=== PATIENT | female | born 1930 ===

== ENCOUNTER 2019-05-23 20:52 | Inpatient (IN) | payer MEDICARE, OTHER ==
[~2019-05-23] VITALS: Ht 167.6 cm; Wt 63.2 kg
[2019-05-23 23:18] VITALS: BP 127/67; PULSE 62; TEMP 97.6
[2019-05-23 23:20] VITALS: BP 127/67; PULSE 62; TEMP 97.6
[2019-05-23] MEDS ORDERED: NORVASC 5MG5 MG/TAB PO (23:20)
[2019-05-23] MEDS ORDERED: SYNTHROID0.05 MG/TA PO (23:21)
[2019-05-23] MEDS ORDERED: BETAPACE 80MG80 MG PO (23:22)
[2019-05-23] MEDS ORDERED: MULTI VITAMINS1 TAB PO (23:38)
[2019-05-24] VITALS (11 sets, daily range): BP systolic 102–144; BP diastolic 50–63; PULSE 54–70; TEMP 97.4–98.2
--- NOTE | 2019-05-24 01:39 | NUR ---
Patient arrived to unit from EMS at [facility]. Patient had fall over cement parking block with result of left hip fx. Patient alert and oriented with VSS. Mares placed. D5NS running at 75 with IV in left hand. PRN morphine given, patient states she has a lot of relief from this rather than the fentanyl she was getting. Call light within reach, will continue to monitor
[2019-05-24 02:49] LABS: MUCOUS Present /lpf; PH 7 (5-8); SQUAMOUS EPITHELIAL None Seen /hpf; URINE APPEARANCE Clear; URINE BACTERIA None Seen /hpf; URINE BILIRUBIN Negative (NEGATIVE); URINE BLOOD 1+ (NEGATIVE); URINE COLOR Yellow; URINE GLUCOSE 1+ (NEGATIVE); URINE KETONE 1+ (NEGATIVE); URINE LEUKOCYTE ESTERASE Negative (NEGATIVE); URINE NITRATE Negative (NEGATIVE); URINE PROTEIN(semi-quant) Negative (NEGATIVE); URINE RBC 0-2 /hpf; URINE UROBILINOGEN Negative (NEGATIVE)
[2019-05-24 02:50] LABS: COLLECTION METHOD CLEAN CATCH
[2019-05-24 04:12] LABS: BASO % 0.2 % (0.0-2.0); EOS % 0.2 % (0-4.0); GRAN # 18.2 (1.4-6.5); GRAN % 87.6 % (42.2-75.2); HEMATOCRIT 41.9 % (37.0-47.0); HEMOGLOBIN 13.5 g/dl (12.5-16.0); LYMPH # 1.2 (1.2-3.4); MEAN CELL VOLUME 90 fl (80.0-100.0); MEAN CORPUSCULAR HEMOGLOBIN 29 pg (27.0-31.0); MEAN CORPUSCULAR HGB CONC 32 g/dl (33.0-37.0); MEAN PLATELET VOLUME 9.6 fl (7.4-10.4); MONO # 1.1 (0.1-0.6); MONO % 5.5 % (1.7-9.3); PLATELET COUNT 229 K/mm3 (130-400); RED BLOOD COUNT 4.66 M/mm3 (4.10-5.30); REDCELL DISTRIBUTION WIDTH-CV 13.8 % (11.5-14.5)
--- NOTE | 2019-05-24 04:17 | NUR ---
kaitlin notified of WBC count
[2019-05-24 04:20] LABS: INR 1.1 (0.8-3.0); PROTHROMBIN TIME 13.1 SECONDS (9.7-12.8)
[2019-05-24 04:23] LABS: ALBUMIN 4.1 gm/dL (3.5-5.0); CALCIUM 8.8 mg/dL (8.4-10.2); CREATININE, serum 0.66 (0.52-1.25); MAGNESIUM 1.8 mg/dL (1.6-2.3); POTASSIUM 4.2 mmol/L (3.4-5.0)
[2019-05-24 04:30] LABS: PRE ALBUMIN 19.4 mg/dL (17.6-36.0)
--- NOTE | 2019-05-24 09:15 | NUR ---
Left hip pain improved with prn Morphine. Hospitalist saw patient. Orthopedics notified. Daughters here. To surgery per bed with OR staff.
--- NOTE | 2019-05-24 12:05 | NUR ---
Returned to room from PACU. Alert. Denied pain or nausea. Left hip dressing CDI. VSS. Family at bedside.
--- NOTE | 2019-05-24 18:30 | NUR ---
VSS. Denied pain. Moving legs well. Repositioned in bed. Took diet without nausea. Hospitalist notified of low urine output. IV fluids infusing. Patient encouraged to drink more fluids as tolerated.
--- NOTE | 2019-05-24 21:44 | NUR ---
Patient doing well. Had left hip fx repair. Bulky dressing to hip, CD&I. Pain is controlled. Has NS running. Evening meds given. No other complaints at this time. Call light within reach, will continue to monitor
--- NOTE | 2019-05-24 23:09 | NUR ---
asked patient if she wanted to get up and out of bed, refused. stated she was too tired
[2019-05-25 01:33] VITALS: BP 107/56; PULSE 68; TEMP 99.1
--- NOTE | 2019-05-25 03:21 | NUR ---
Patient sleeping in bed. VSS. No concerns at this time. Will continue to monitor
[2019-05-25 04:00] VITALS: BP 112/52; PULSE 67; TEMP 97.5
[2019-05-25 06:31] LABS: BASO % 0.3 % (0.0-2.0); EOS # 0.3 (0.0-0.7); EOS % 2.6 % (0-4.0); GRAN # 9.4 (1.4-6.5); GRAN % 75.4 % (42.2-75.2); HEMOGLOBIN 11.8 g/dl (12.5-16.0); LYMPH # 1.7 (1.2-3.4); LYMPH % 13.2 % (20.0-51.0); MEAN CELL VOLUME 91 fl (80.0-100.0); MEAN CORPUSCULAR HEMOGLOBIN 29 pg (27.0-31.0); MEAN CORPUSCULAR HGB CONC 32 g/dl (33.0-37.0); MEAN PLATELET VOLUME 10.1 fl (7.4-10.4); MONO % 8.1 % (1.7-9.3); PLATELET COUNT 212 K/mm3 (130-400); RED BLOOD COUNT 4.03 M/mm3 (4.10-5.30); REDCELL DISTRIBUTION WIDTH-CV 13.9 % (11.5-14.5)
[2019-05-25 06:49] LABS: HEMATOCRIT 36.6 % (37.0-47.0)
[2019-05-25 06:53] LABS: CALCIUM 8.3 mg/dL (8.4-10.2); CREATININE, serum 0.9 (0.52-1.25); POTASSIUM 4.4 mmol/L (3.4-5.0)
[2019-05-25 07:41] VITALS: BP 124/65; PULSE 78; TEMP 98.7
[2019-05-25 11:29] VITALS: BP 94/72; PULSE 70; TEMP 98.2
[2019-05-25 15:31] VITALS: BP 122/59; PULSE 66; TEMP 98.2
--- NOTE | 2019-05-25 16:16 | NUR ---
Plan is to go to a SNF at 1. [facility], or 2. [facility]. SW met with patient and her two DTRs also Dtr Denisha DARLING and Urmila Torres . Patient gave verbal auth to talk in front of DTRs. Patient choice for [facility] because her is currently there for SNF. Patient woould like to be with her . Patient reports that her second options would be [facility]. Patient denies having any DME us prior to this stay. Dr. Butler in [place] is PCP and [facility] is pref-RX. Patient is not currently using any Home health services. Patient does use hearing devices. They are currenlty not working well. Waiting on screen to be returned for either placment. VV [phone], [phone].
--- NOTE | 2019-05-25 18:00 | NUR ---
Denied need for pain med this shift. O2 on per nasal cannula. Transfers well with walker and one staff assist. Complained of nausea and epigastric discomfort improved after prn meds. Urine output improved today.
[2019-05-25 19:29] VITALS: BP 103/53; PULSE 72; TEMP 97.5
--- NOTE | 2019-05-25 20:10 | NUR ---
Pt doing well. Resting in bed. Did get up and ambulate [address] C/o nausea afterwards, most likely due to being off oxygen for walk. Put back on oxygen and patient resting in bed. Stated she felt better after. No other concerns. Call light within reach, will continue to monitor
[2019-05-26] VITALS (7 sets, daily range): BP systolic 118–138; BP diastolic 47–76; PULSE 64–71; TEMP 97.4–98
--- NOTE | 2019-05-26 00:15 | NUR ---
Iv found to be leaking. Taken out and restarted 22g in left forearm with no issues. CD&I
[2019-05-26 07:12] LABS: BASO % 0.3 % (0.0-2.0); EOS # 0.4 (0.0-0.7); EOS % 2.4 % (0-4.0); GRAN # 11.3 (1.4-6.5); GRAN % 76.3 % (42.2-75.2); HEMOGLOBIN 10.9 g/dl (12.5-16.0); LYMPH # 2.2 (1.2-3.4); LYMPH % 14.6 % (20.0-51.0); MEAN CELL VOLUME 92 fl (80.0-100.0); MEAN CORPUSCULAR HEMOGLOBIN 29 pg (27.0-31.0); MEAN CORPUSCULAR HGB CONC 32 g/dl (33.0-37.0); MEAN PLATELET VOLUME 10.4 fl (7.4-10.4); MONO # 0.9 (0.1-0.6); MONO % 5.9 % (1.7-9.3); PLATELET COUNT 219 K/mm3 (130-400); RED BLOOD COUNT 3.78 M/mm3 (4.10-5.30); REDCELL DISTRIBUTION WIDTH-CV 13.9 % (11.5-14.5)
[2019-05-26 07:13] LABS: HEMATOCRIT 34.6 % (37.0-47.0)
--- NOTE | 2019-05-26 07:16 | NUR ---
Report from Syeda GROSS. pt returned to bed after voiding with assist.
[2019-05-26 07:19] LABS: CALCIUM 8.2 mg/dL (8.4-10.2); CREATININE, serum 0.82 (0.52-1.25); POTASSIUM 4.6 mmol/L (3.4-5.0)
--- NOTE | 2019-05-26 08:34 | NUR ---
PT RESTING IN BED. PO PAIN MEDS GIVEN FOR PAIN. PT IS A/O X3, DRESSING TO LEFT HIP CDI WITH NO DRAINAGE NOTED.
[2019-05-26] MEDS ORDERED: PROTONIX 40MG T40 MG PO (09:47)
[2019-05-26] MEDS ORDERED: ASPIRIN 32325 MG/TA1 PO (09:47)
[2019-05-26] MEDS ORDERED: ULTRAM 50MG TAB50 MG PO (09:51)
--- NOTE | 2019-05-26 11:32 | NUR ---
The patient's daughters' approached [facility], inquiring about rehab in [address]. SW informed them of inpatient rehab. The patient's daughters report that they would be interested in IPR. Urmila reports that the patient would have to share a room at [facility] and they would not prefer that. [facility] consulted IPR Director, Estefania. SW awaiting their screen.
--- NOTE | 2019-05-26 11:46 | NUR ---
Follow-up visit; Patient thanked Cylinder Inspector for looking in on her and offering prayer and encouragement. Cylinder Inspector met Melissa's daughters as they left and let them know Cylinder Inspector is available to offer Spiritual Care to follow up for Melissa's Copy Manager.
--- NOTE | 2019-05-26 13:43 | NUR ---
Estefania, IPR Director, reports that they are able to accept the patient. Ivette, at [facility], then contacted [facility] to inform that one of their residents is moving to a different room and it would leave a private room available for the patient. Ivette reports that they would then be able to accept the patient tomorrow, 05/27. [facility] and IPR Director, Estefania, then met with the patient to inform. The patient plans to contact her daughters before making a decision on which to pursue. [facility] had also presented and explained the IM form to the patient. The patient verbalized understanding, signed, and she was provided a copy. [facility] to continue to follow.
--- NOTE | 2019-05-26 15:36 | NUR ---
[facility] followed up with the patient. The patient reports that she has spoke to her daughters and that they have decided to pursue [facility]. [facility]I updated IPR Director, Estefania. [facility]I attempted to contact Ivette at [facility]. [facility] left a her a voicemail.
--- NOTE | 2019-05-26 15:42 | NUR ---
Ivette, at [facility], reports that they are able to accept the patient.
--- NOTE | 2019-05-26 20:40 | NUR ---
Lying in bed with eyes open. Denies pain or nausea at this time. Explains that she has had a rough day with nausea and reflux but at this time she feels good. Left hip with dressing CDI. Patient ambulates to bathroom. Voids without difficulty. Returns to bed. Syd hose on and SCDs in place. Patient denies further needs at this time.
--- NOTE | 2019-05-26 23:45 | NUR ---
Lying in bed with eyes closed. Opens eyes when name called out. Denies pain or nausea. Up to bathroom, gait steady with use of walker. Voids without difficulty. Returns to bed. Denies further needs at this time.
[2019-05-27 03:51] VITALS: BP 121/57; PULSE 68; TEMP 97.8
--- NOTE | 2019-05-27 04:03 | NUR ---
Lying in bed with eyes closed. Opens eyes when name called out. Denies pain. Dressing to left hip CDI. Ambulates to bathroom with use of walker. Gait steady. Urinates without difficulty, missed measuring hat. Returns to bed. Denies further needs at this time.
--- NOTE | 2019-05-27 06:00 | NUR ---
Lying in bed with eyes closed. Eyes open when name called out. Denies pain. Denies further needs at this time.
--- NOTE | 2019-05-27 06:35 | NUR ---
awake and resting in bed, bedside shift report received from GINNY Dos Santos
[2019-05-27 08:15] VITALS: BP 138/45; PULSE 71; TEMP 98.3
--- NOTE | 2019-05-27 08:30 | NUR ---
resting up in chair, has had breakfast and tolerated well, was up to bathroom and has had 3 small bowel movements, still c/o minimal nausea but it is getting better, full assessment completed, see interventions for further info, denies need for pain pills
[2019-05-27] MEDS ORDERED: ANTACID 225 MG360 M1 PO (08:50)
--- NOTE | 2019-05-27 08:50 | NUR ---
Dr Lopez and care team in to see patient
--- NOTE | 2019-05-27 09:50 | NUR ---
has had another loose stool and given immodium 2mg
--- NOTE | 2019-05-27 10:28 | NUR ---
The patient is to discharge today, 05/27, to [facility] for a skilled stay. Transportation was scheduled for 1300, via [facility]. SW informed the patient, patient's daughters, and the RN. They were all in agreeance to the time. No additional needs.
--- NOTE | 2019-05-27 11:44 | NUR ---
Follow up visit from the wind plant manager. No needs right now.
--- NOTE | 2019-05-27 12:00 | NUR ---
sitting up in chair eating lunch, CONCRETE PIPE MACHINE OPERATOR assisted her with taking a shower and getting dressed for discharge, had another bowel movement that was loose and semi formed
--- NOTE | 2019-05-27 12:51 | NUR ---
only ate very small amount of lunch and c/o indigestion and some nausea, asking about taking a tums that she has in her purse, instructed her she shouldn't do that and verbalizes understanding, Dr Lopez notified and order received
[2019-05-27 12:53] VITALS: BP 138/45; PULSE 71; TEMP 98.3
--- NOTE | 2019-05-27 13:00 | NUR ---
[facility] here for transfer, assisted out of room and into WC, daughter at bedside and will take belongings
[2019-05-27 13:01] VITALS: BP 126/57; PULSE 66; TEMP 98.3
--- NOTE | 2019-05-27 13:15 | NUR ---
discharged per , report called to [facility]
== END 2019-05-27 13:15 | DRG 470 ==
LOC: SURG 20:52
PROVIDERS: Hospitalist; Nurse Practitioner Family; Orthopaedic Surgery; ADMIT Student in an Organized Health Care Education/Training Program
PROC: 0SRS0J9 Replacement of Left Hip Joint, Femoral Surface with Synthetic Substitute, Cemented, Open Approach (ICD-10-PCS; principal; 2019-05-24 07:30)
DX: S72.002A Fracture of unspecified part of neck of left femur, initial encounter for closed fracture (principal); I48.20 Chronic atrial fibrillation, unspecified; W01.0XXA Fall on same level from slipping, tripping and stumbling without subsequent striking against object, initial encounter; I10 Essential (primary) hypertension; E78.5 Hyperlipidemia, unspecified; E03.9 Hypothyroidism, unspecified; D72.829 Elevated white blood cell count, unspecified; K21.9 Gastro-esophageal reflux disease without esophagitis; D64.9 Anemia, unspecified; Y93.9 Activity, unspecified; Y92.481 Parking lot as the place of occurrence of the external cause; Z85.038 Personal history of other malignant neoplasm of large intestine; Z92.21 Personal history of antineoplastic chemotherapy; Z90.49 Acquired absence of other specified parts of digestive tract
CPT/HCPCS: 99222-AI; 99232-AI; 99239; C1776; C9113; J0690; J1885; J2250; J2270; J2405; J2550; J2704; J2795; J7030; J7120